=== PATIENT | female | born 1950 | race Caucasian/White ===

== ENCOUNTER 2022-10-26 21:04 | Emergency (ER) | payer MEDICARE ==
[~2022-10-26] VITALS: Ht 170.2 cm; Wt 61.2 kg
--- NOTE | 2022-10-26 21:25 | NUR ---
[id number]. DENT BY SNF FOR INCREASED CONFUSION AND ANXIETY. PATIENT AAOX4, ABLE TO MAKE NEEDS KNOWN. ANSWERS QUESTIONS CORRECTLY, W/ APPROPRIATE BEHAVIOR. ATTACHED TO MONITOR, VS CHECKED.
--- NOTE | 2022-10-26 22:03 | NUR ---
ACCUCHECK COMPLETED, [id number]
[2022-10-26] MEDS ORDERED: ACETAMINOPHEN ES 500 MG TABLET ONE (22:47)
[2022-10-26] MEDS ORDERED: ONDANSETRON 4 MG TAB.RAPDIS ONE (22:48)
--- NOTE | 2022-10-26 22:58 | NUR ---
URINE COLLECTED AND SENT TO LAB
--- NOTE | 2022-10-26 22:59 | NUR ---
PT BROUGHT TO CT DEPARTMENT
[2022-10-26] MEDS ORDERED: ONDANSETRON 4 MG TAB.RAPDIS SL ONE (23:00)
[2022-10-26] MEDS ORDERED: ACETAMINOPHEN ES 500 MG TABLET PO ONE (23:00)
--- NOTE | 2022-10-26 23:00 | NUR ---
STEM MOUNTER AT BEDSIDE
[2022-10-27 00:08] LABS: BASOPHILS # (AUTO) 0.1 K/uL (0.0-0.2); BASOPHILS % (AUTO) 0.5 % (0.0-2.0); EOSINOPHILS % (AUTO) 0.4 % (0.0-6.0); HEMATOCRIT 39 % (33-45); HEMOGLOBIN 12.2 g/dL (11.5-14.8); LYMPHOCYTES # (AUTO) 2.3 K/uL (0.8-4.8); LYMPHOCYTES % (AUTO) 13.4 % (20.0-44.0); MEAN CORPUSCULAR HGB CONC 31 g/dl (31.0-36.0); MEAN CORPUSCULAR VOLUME 99 fL (82-100); MONOCYTES # (AUTO) 1.2 K/uL (0.1-1.30); MONOCYTES % (AUTO) 6.7 % (2.0-12.0); NEUTROPHILS # (AUTO) 13.9 K/uL (1.8-8.9); PLATELET COUNT (AUTO) 432 K/uL (150-450); RED BLOOD CELL COUNT(AUTO) 3.94 MIL/uL (4.0-5.2); WHITE BLOOD COUNT (AUTO) 17.5 K/uL (4.3-11.0)
[2022-10-27 00:09] LABS: BILIRUBIN,URINE NEGATIVE (NEGATIVE); COLOR,URINE YELLOW (YELLOW); LEUKOCYTE ESTERASE ,URINE NEGATIVE (NEGATIVE); NITRITE, URINE NEGATIVE (NEGATIVE); PROTEIN,URINE NEGATIVE (NEGATIVE); UGLUCOSE NEGATIVE (NEGATIVE)
[2022-10-27 00:19] LABS: CALCIUM, SERUM 9.8 mg/dL (8.5-10.1); CARBON DIOXIDE 22 mmol/L (21-32); CHLORIDE 104 mmol/L (98-107); CREATININE 0.6 mg/dL (0.6-1.3); GLUCOSE 100 mg/dL (74-106); POTASSIUM 3.7 mmol/L (3.5-5.1); SODIUM SERUM 137 mmol/L (136-145); UREA NITROGEN, BLOOD 13 mg/dL (7-18)
[2022-10-27 00:25] LABS: BACTERIA,URINE Rare /HPF (None Seen); RBC,URINE 0-2 /HPF (0-2); SQUAMOUS EPITHELIAL CELL,UR Few /HPF (None Seen); WBC,URINE 0-2 /HPF (0-3)
[2022-10-27 00:27] LABS: ACETAMINOPHEN 0 ug/ml (10-30); ALANINE AMINOTRANSFERASE 20 U/L (12-78); ALBUMIN 3.1 g/dL (3.4-5.0); ALCOHOL, BLOOD < 3 mg/dL (0-0); ALKALINE PHOSPHATASE 187 U/L (46-116); ASPARTATE AMINOTRANSFERASE 24 U/L (15-37); BILIRUBIN,DIRECT 0.1 mg/dL (0.0-0.2); BILIRUBIN,TOTAL 0.4 mg/dL (0.2-1.0); TOTAL PROTEIN, SERUM 7.8 g/dL (6.4-8.2)
--- NOTE | 2022-10-27 01:47 | NUR ---
[facility] CALLED FOR BLS GOING BACK TO SNF PER ANNA ETA 45 MIN
--- NOTE | 2022-10-27 02:06 | NUR ---
REPORT GIVEN TO DEVI BOURNE AND [facility]. PT WILL BE GOING BACK TO FACILITY
[2022-10-27 02:09] VITALS: BP 143/72
== END 2022-10-27 02:43 ==
LOC: ER 21:17
DX: F41.9 Anxiety disorder, unspecified (principal); M79.7 Fibromyalgia; G89.29 Other chronic pain; J45.909 Unspecified asthma, uncomplicated; Z88.1 Allergy status to other antibiotic agents; Z88.2 Allergy status to sulfonamides; Z88.5 Allergy status to narcotic agent
CPT/HCPCS: 99284; 70450; 85025; 80048; 80076; 81001; 36415; 82962; 80143; 80320; 80307; Q0162; G0480

== ENCOUNTER 2024-02-24 02:07 | Emergency (ER) | payer MEDICARE ==
[~2024-02-24] VITALS: Ht 172.7 cm; Wt 68.0 kg
[2024-02-24 07:17] VITALS: BP 100/64; TEMP 98.5; O2SAT 99
== END 2024-02-24 07:33 ==
LOC: ER 02:14
DX: S01.01XA Laceration without foreign body of scalp, initial encounter (principal); S70.02XA Contusion of left hip, initial encounter; J45.909 Unspecified asthma, uncomplicated; E03.9 Hypothyroidism, unspecified; Z88.2 Allergy status to sulfonamides; Z88.5 Allergy status to narcotic agent; W01.0XXA Fall on same level from slipping, tripping and stumbling without subsequent striking against object, initial encounter; Y93.89 Activity, other specified; Y92.89 Other specified places as the place of occurrence of the external cause; Y99.8 Other external cause status
CPT/HCPCS: 70450-TC; 72125-TC; 73502

== ENCOUNTER 2024-08-14 02:55 | Emergency (ER) | payer MEDICARE ==
[~2024-08-14] VITALS: Ht 167.6 cm; Wt 81.6 kg
[2024-08-14] MEDS ORDERED: ACETAMINOPHEN 325 MG TABLET ONE (03:56)
[2024-08-14] MEDS: ACETAMINOPHEN 325 MG TABLET PO ONE (04:03)
[2024-08-14 05:24] VITALS: BP 124/75; TEMP 98.1; O2SAT 98
== END 2024-08-14 05:24 | disposition home or self-care (01) ==
LOC: ER 03:03
DX: S01.81XA Laceration without foreign body of other part of head, initial encounter (principal); E03.9 Hypothyroidism, unspecified; M19.90 Unspecified osteoarthritis, unspecified site; M79.7 Fibromyalgia; Z85.828 Personal history of other malignant neoplasm of skin; Z86.718 Personal history of other venous thrombosis and embolism; Z88.2 Allergy status to sulfonamides; Z88.5 Allergy status to narcotic agent; Z88.6 Allergy status to analgesic agent; W01.0XXA Fall on same level from slipping, tripping and stumbling without subsequent striking against object, initial encounter; Y93.89 Activity, other specified; Y92.89 Other specified places as the place of occurrence of the external cause; Y99.8 Other external cause status
CPT/HCPCS: 70450-TC